=== PATIENT | female | born 1985 ===

== ENCOUNTER 2016-12-02 18:27 | Emergency (ER) | payer BC, OTHER ==
[2016-12-02 19:22] VITALS: BP 119/72
--- NOTE | 2016-12-02 20:00 | UC ---
Complaint Female HPI - HPI Summary HPI Summary: 31 YEAR OLD FEMALE WITH COMPLAINTS OF VAGINAL INFECTION. SHE HAD PROTECTED SEX , USED A CONDOM, ON November WITH A NEW PARTNER. November FELT SOME VAGINAL IRRITATION. SHE BECAME WORRIED ABOUT STI AND HAS BEEN CONSTANTLY THINKING ABOUT IT AND WORRYING ABOUT IT FOR 4 DAYS. TODAY SHE LOOKED AT HERSELF WITH A MIRROR AND THINKS SHE SAW A WHITE LUMP IN HER VAGINAL OPENING. SHE DENIES ABDOMINAL PAIN, FEVER OR CHILLS. SHE DOES HAVE SOME "NORMAL" THINK VAGINAL DISCHARGE. SHE IS A RUNNER AND HAD A TRACK MEET TODAY. SHE DRANK EXTRA FLUIDS TODAY AND NOW HAS INCREASED URINATION. SHE IS NOW CONCERNED ABOUT UTI. HX OF HPV WITH LEEP PROCEDURE 2 YEARS AGO. 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 Negative: Fever, Back Pain, Vaginal Bleeding/Discharge, Nausea, Vomiting(# Of Episodes =), Genital Swelling, Genital Blisters - Risk Factors Ectopic Risk Factor: Negative Ovarian Torsion Risk Factor: Reproductive Age - Allergies/Home Medications Allergies/Adverse Reactions: Allergies Allergy/AdvReac Type Severity Reaction Status Date / Time No Known Allergies Allergy Verified 12/02/16 19:22 Home Medications: Home Medications Norethindrone Acet & Eth Estra [Microgestin 1.5/30 1.5-30 mg-Mcg] 1 tab PO DAILY 12/02/16 [History Confirmed 12/02/16] PMH/Surg Hx/FS Hx/Imm Hx Previously Healthy: Yes Endocrine History Of: Denies: Diabetes Cardiovascular History Of: Denies: Cardiac Disorders Respiratory History Of: Denies: Asthma - Surgical History Surgical History: Yes Surgery Procedure, Year, and Place: LEEP PROCEDURE 2014 - Family History Known Family History: Negative: Hypertension, Diabetes - Social History Occupation: Employed Full-time Lives: With Family Alcohol Use: None Substance Use Type: None Smoking Status (MU): Never Smoked Tobacco Review of Systems Constitutional: Negative Skin: Negative Eyes: Negative ENT: Negative Respiratory: Negative Cardiovascular: Negative Gastrointestinal: Negative Genitourinary: Frequency, Other - INCREASED CLEAR VAGINAL DISCHARGE Motor: Negative Neurovascular: Negative Musculoskeletal: Negative Neurological: Negative Psychological: Negative All Other Systems Reviewed And Are Negative: Yes Physical Exam Triage Information Reviewed: Yes Appearance: Well-Appearing, Well-Nourished, Pain Distress - TEARFUL WITH ANXIETY Vital Signs: Initial Vital Signs Temp 99.1 F 12/02/16 19:16 Pulse 75 12/02/16 19:16 Resp 16 12/02/16 19:16 BP 119/72 12/02/16 19:16 Pulse Ox 100 12/02/16 19:16 Vital Signs Reviewed: Yes Eyes: Positive: Conjunctiva Clear. Negative: Discharge ENT: Positive: Pharynx normal. Negative: Nasal congestion Neck: Positive: Supple, Nontender Respiratory: Positive: Lungs clear, Normal breath sounds Cardiovascular: Positive: RRR, No Murmur Abdomen Description: Positive: Nontender, No Organomegaly, Soft, Other: - LABIA WITHOUT MASSES OR LESIONS. SMALL WHITE SOFT PUSTULE AT VAGINAL OPENING THAT RESOLVED WITH GENTLE WIPING WITH LANCE. PELIVIC EXAM - THIN / WHITE VAGINAL DISCHARGE. CERVIX NONTENDER, NONFRIABLE, WITHOUT MASSES OR LESIONS. NO PAIN OR TENDERNESS WITH EXAM BIMANUAL - NO OVERY OR UTERUS ENLARGEMENT APPRECIATED. NO PAIN WITH EXAM. Negative: CVA Tenderness (R), CVA Tenderness (L), Peritoneal Signs Musculoskeletal: Positive: Strength Intact, ROM Intact Neurological: Positive: Alert, Muscle Tone Normal Psychological: Positive: Age Appropriate Behavior - PLEASANT AND COOPERATIVE, Consolable Skin: Negative: rashes, breakdown Complaint Female Dx - Course Course Of Treatment: UA- NEGATIVE. HCG - NEGATIVE. GC/CHLAM - PENDING. AFFIRM - PENDING. 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 IF ANYTHING IS POSITIVE WE WILL CALL YOU
== END 2016-12-02 20:29 | disposition home or self-care (01) ==
LOC: UCEAST 18:27
DX: N76.0 Acute vaginitis (principal)
CPT/HCPCS: 81002; 81025; 87086; 87480; 87491; 87510; 87591; 87661; 99211; G0463

== ENCOUNTER 2017-05-02 20:11 | Emergency (ER) | payer BC ==
[2017-05-02 20:20] VITALS: BP 110/62
--- NOTE | 2017-05-02 21:38 | UC ---
Complaint Female HPI - HPI Summary HPI Summary: Pain and burning with urination began at 1800 has had UTI in the pas that the initial dip was negative - History Of Current Complaint Chief Complaint: UCGU Stated Complaint: burning urination Time Seen by Provider: 05/02/17 21:28 Hx Obtained From: Patient Hx Last Menstrual Period: 2 1/2 WEEKS AGO ?: No Onset/Duration: Sudden Onset, Lasting Hours, Still Present Timing: Constant Severity Initially: Moderate Severity Currently: Moderate Pain Intensity: 6 Pain Scale Used: 0-10 Numeric Character: Burning Aggravating Factor(s): Urination Alleviating Factor(s): Nothing Associated Signs And Symptoms: Positive: Negative - Allergies/Home Medications Allergies/Adverse Reactions: Allergies Allergy/AdvReac Type Severity Reaction Status Date / Time No Known Allergies Allergy Verified 05/02/17 20:19 Home Medications: Home Medications Escitalopram (NF) [Lexapro 5 mg (NF)] 5 mg PO DAILY 05/02/17 [History Confirmed 05/02/17] PMH/Surg Hx/FS Hx/Imm Hx Previously Healthy: Yes - Surgical History Surgical History: Yes Surgery Procedure, Year, and Place: LEEP PROCEDURE 2014 - Family History Known Family History: Negative: Hypertension, Diabetes - Social History Occupation: Employed Full-time Lives: With Family Alcohol Use: None Substance Use Type: None Smoking Status (MU): Never Smoked Tobacco Review of Systems Constitutional: Negative Skin: Negative Eyes: Negative ENT: Negative Respiratory: Negative Cardiovascular: Negative Gastrointestinal: Negative Genitourinary: Dysuria, Frequency Motor: Negative Neurovascular: Negative Musculoskeletal: Negative Neurological: Negative Psychological: Negative All Other Systems Reviewed And Are Negative: Yes Physical Exam Triage Information Reviewed: Yes Appearance: Well-Appearing, No Pain Distress, Well-Nourished Vital Signs: Initial Vital Signs Temp 98.1 F 05/02/17 20:19 Pulse 97 05/02/17 20:19 Resp 16 05/02/17 20:19 BP 110/62 05/02/17 20:19 Pulse Ox 98 05/02/17 20:19 Vital Signs Reviewed: Yes Eye Exam: Normal Eyes: Positive: Conjunctiva Clear ENT Exam: Normal ENT: Positive: Normal ENT inspection, Hearing grossly normal. Negative: Nasal congestion, Nasal drainage, Tonsillar swelling, Tonsillar exudate, Trismus, Muffled/hoarse voice Dental Exam: Normal Neck exam: Normal Neck: Positive: Supple, Nontender Respiratory Exam: Normal Respiratory: Positive: Chest non-tender, Lungs clear, Normal breath sounds, No respiratory distress, No accessory muscle use Cardiovascular Exam: Normal Cardiovascular: Positive: RRR, No Murmur, Pulses Normal, Brisk Capillary Refill Abdominal Exam: Normal Abdomen Description: Positive: Nontender, No Organomegaly, Soft. Negative: CVA Tenderness (R), CVA Tenderness (L) Bowel Sounds: Positive: Present Musculoskeletal Exam: Normal Musculoskeletal: Positive: Strength Intact, ROM Intact, No Edema Neurological Exam: Normal Neurological: Positive: Alert, Muscle Tone Normal Psychological Exam: Normal Skin Exam: Normal Complaint Female Dx - Course Course Of Treatment: culture urine, start a/b pending culture, increase fluids follow with pcp prn - Differential Dx/Diagnosis Differential Diagnosis/HQI/PQRI: Cervicitis, , Renal Colic, Urinary Tract Infection Provider Diagnoses: UTI, Dysuria Discharge - Discharge Plan Condition: Stable Disposition: HOME Patient Education Materials: Sulfamethoxazole/Trimethoprim (By mouth), Phenazopyridine (By mouth), Urinary Tract Infection in Women (ED) Referrals: Noel Olivas MD [Primary Care Provider] - 2 Weeks
[2017-05-02] MEDS ORDERED: Sulfamethox/Trimethoprim DS 800/160* TAB PO ONE (21:44)
== END 2017-05-02 22:25 | disposition home or self-care (01) ==
LOC: UCEAST 20:11
DX: N39.0 Urinary tract infection, site not specified (principal); Z32.02 Encounter for pregnancy test, result negative; Z87.440 Personal history of urinary (tract) infections
CPT/HCPCS: 81003; 84702; 87086; 99212; A9270-GY; G0463